=== PATIENT | female | born 1960 | race Caucasian/White ===

== ENCOUNTER → 2016-05-31 | Outpatient (CLI) | payer BC ==
--- NOTE | 2016-06-01 08:18 | MM ---
Reason for exam: screening (asymptomatic). Last mammogram was performed 1 year ago. History: Patient is postmenopausal, has history of other cancer at age 53, and had first child at age 30. Family history of premenopausal breast cancer in maternal grandmother at age 48. Physical Findings: A clinical breast exam by your physician is recommended on an annual basis and results should be correlated with mammographic findings. MG 3D Screening Mammo W/Cad Bilateral CC and MLO view(s) were taken. Prior study comparison: May 29, 2015, bilateral MG 3d screening mammo w/cad. May 27, 2014, bilateral MG screening mammo w CAD. May 25, 2013, bilateral digital screening mammo w/CAD. There are scattered fibroglandular densities. No significant changes when compared with prior studies. ASSESSMENT: Negative, BI-RAD 1 RECOMMENDATION: Routine screening mammogram of both breasts in 1 year.
== END | disposition home or self-care (01) ==
LOC: RADMAMWWP 15:37
PROVIDERS: ATTEND Internal Medicine
DX: Z12.31 Encounter for screening mammogram for malignant neoplasm of breast (principal)
CPT/HCPCS: 77063; G0202

== ENCOUNTER 2016-09-09 00:45 | Emergency (ER) | payer BC ==
[2016-09-09] MEDS ORDERED: ONDANSETRON 4 MG/2 ML VIAL IVP STA (01:58)
[2016-09-09 02:25] LABS: Basophils % (A) 0 %; CH 28.5; CHCM 33.5; Eosinophils # (A) 0.1 k/uL (0-0.7); Eosinophils % (A) 1 %; HCT 38.8 % (34.0-46.0); HDW 2.35; HGB 13.5 gm/dL (11.4-16.0); Luc # (Auto) 0.06; Luc % (Auto) 1; Lymphocytes # (A) 0.7 k/uL (1.0-4.8); Lymphocytes % (A) 6 %; MCH 29.7 pg (25.0-35.0); MCHC 34.8 g/dL (31.0-37.0); MCV 85.4 fL (80.0-100.0); Mean Platelet Volume 6.9; Monocytes # (A) 0.2 k/uL (0-1.0); Monocytes % (A) 2 %; Neutrophils # (A) 10.4 k/uL (1.3-7.7); Neutrophils % (A) 91 %; RBC 4.54 m/uL (3.80-5.40); RDW 12.7 % (11.5-15.5); WBC 11.4 k/uL (3.8-10.6); WBC (Perox) 11.64
[2016-09-09 02:35] LABS: ALT 64 U/L (9-52); AST 34 U/L (14-36); Alkaline Phosphatase 79 U/L (38-126); Amylase 63 U/L (30-110); Anion Gap 10 mmol/L; Blood Urea Nitrogen 23 mg/dL (7-17); Calcium 9.3 mg/dL (8.4-10.2); Carbon Dioxide 24 mmol/L (22-30); Chloride 105 mmol/L (98-107); Glucose 121 mg/dL (74-99); Non-African American GFR(MDRD) >60 (>60 ml/min/1.73 sqM); Potassium 4.1 mmol/L (3.5-5.1); Sodium 139 mmol/L (137-145); Total Bilirubin 0.7 mg/dL (0.2-1.3); Total Protein 6.7 g/dL (6.3-8.2)
[2016-09-09 02:43] LABS: Appearance,Urine Clear (Clear); Bacteria,Urine Moderate /hpf; Bilirubin,Urine Negative (Negative); Glucose,Urine (UA) Negative (Negative); Ketones,Urine Negative (Negative); Leukocyte Esterase,Urine Trace (Negative); Nitrite,Urine Negative (Negative); Particle Count 9964; Protein,Urine Negative (Negative); RBC,Urine <1 /hpf (0-5); Specific Gravity,Urine 1.006 (1.001-1.035); Squamous Epithelial Cell,Urine <1 /hpf (0-4); UA Billing (MACRO vs. MICRO) MICRO; Urobilinogen,Urine <2.0 mg/dL (<2.0); WBC,Urine 2 /hpf (0-5)
--- NOTE | 2016-09-09 03:22 | ED ---
General Adult HPI - General Chief complaint: Extremity Problem,Nontraumatic Stated complaint: Cold/Shaky Time Seen by Provider: 09/09/16 01:08 Source: patient Mode of arrival: ambulatory Limitations: no limitations - History of Present Illness Initial comments: This patient is a 56-year-old woman who presents to the emergency department with the complaint that her hands and then shaking. She feels like she is not able to stop this. Shortly after patient was triaged she also stated that she developed some nausea and then she had 2 episodes of vomiting. Patient states that the shaking of the hands then resolved following that. Further history from the patient reveals that she was concerned she may have had some lettuce and her salad that she thinks was bad. Patient states that all of her abdominal symptoms have resolved. She is not having any pain she is no longer having nausea and she has not had any further vomiting. -: hour(s) Location: upper extremity Radiation: non-radiation Consistency: constant Improves with: none Worsens with: none Associated Symptoms: denies other symptoms - Related Data Home Medications Medication Instructions Recorded Confirmed Levothyroxine Sodium [Synthroid] 1 tab PO DAILY 10/13/15 09/09/16 Fenofibrate Nanocrystallized 145 mg PO DAILY 09/09/16 [Tricor] Previous Rx's Medication Instructions Recorded Ondansetron Odt [Zofran ODT] 4 mg PO Q8HR PRN #10 tab 09/09/16 Allergies Allergy/AdvReac Type Severity Reaction Status Date / Time acetaminophen Allergy Severe Itching Verified 09/09/16 00:50 [From Darvocet-N 100] propoxyphene napsylate Allergy Severe Itching Verified 09/09/16 00:50 [From Darvocet-N 100] Review of Systems ROS Statement: Those systems with pertinent positive or pertinent negative responses have been documented in the HPI. ROS Other: All systems not noted in ROS Statement are negative. Constitutional: Denies: fever, chills Respiratory: Denies: cough, dyspnea Cardiovascular: Denies: chest pain, palpitations, syncope Gastrointestinal: Reports: as per HPI, abdominal pain, nausea, vomiting. Denies : diarrhea, hematemesis, melena, hematochezia Genitourinary: Denies: dysuria Musculoskeletal: Denies: back pain Skin: Denies: rash Neurological: Denies: headache, weakness, numbness Past Medical History Past Medical History: Cancer, Thyroid Disorder Additional Past Medical History / Comment(s): BRADYCARDIA, PROLAPSED MITRAL VALVE, STATES THEY SUSPECT THYROID CANCER. History of Any Multi-Drug Resistant Organisms: None Reported Past Surgical History: Cholecystectomy, Hysterectomy, Orthopedic Surgery Additional Past Surgical History / Comment(s): LEFT GREAT TOE FUSION WITH PINS , X2 LEFT KNEE ARTHROSCOPY, THYROID BX. Past Anesthesia/Blood Transfusion Reactions: Previous Problems w/ Anesthesia, Motion Sickness Additional Past Anesthesia/Blood Transfusion Reaction / Comment(s): STATES HOSPITALIZED WITH CHOLECYSTECTOMY DUE TO DIFFICULTY COMING OUT OF ANESTHESIA, ALSO TOOK A LONG TIME TO WAKE UP AFTER KNEE ARTHROSCOPY, SEVERE ITCHING WITH SPINAL ANESTHESIA . DARVOCET ALLERGY. Past Psychological History: Anxiety Smoking Status: Never smoker Past Alcohol Use History: Occasional Past Drug Use History: None Reported - Past Family History Father Family Medical History: Cancer Additional Family Medical History / Comment(s): MELANOMA General Exam Limitations: no limitations General appearance: alert, in no apparent distress Head exam: Present: atraumatic, normocephalic Eye exam: Present: normal appearance. Absent: scleral icterus, conjunctival injection ENT exam: Present: normal oropharynx Neck exam: Present: normal inspection Respiratory exam: Present: normal lung sounds bilaterally. Absent: respiratory distress, wheezes, rales, rhonchi, stridor Cardiovascular Exam: Present: regular rate, normal rhythm, normal heart sounds. Absent: systolic murmur, diastolic murmur, rubs, gallop GI/Abdominal exam: Present: soft. Absent: distended, tenderness, guarding, rebound, mass Extremities exam: Present: normal inspection, normal capillary refill. Absent: pedal edema, calf tenderness Back exam: Present: normal inspection. Absent: CVA tenderness (R), CVA tenderness (L) Neurological exam: Present: alert Skin exam: Present: warm, dry, intact, normal color Course Vital Signs 09/09/16 09/09/16 09/09/16 00:48 02:23 03:36 Temperature 97.3 F L 100.2 F H Pulse Rate 83 73 70 Respiratory 18 18 16 Rate Blood Pressure 142/86 128/60 118/68 O2 Sat by Pulse 100 98 95 Oximetry Medical Decision Making - Medical Decision Making Patient is a 56-year-old woman who presented with a feeling that she was having shaking of her hands. This resolved after she had vomited here. The patient workup is negative other than mild leukocytosis. We discussed possible reasons for this. Given that she is feeling well now will have her follow with her physician, returning here should she develop new symptoms or should the symptoms recur. - Lab Data Result diagrams: 09/09/16 02:12 09/09/16 02:12 Lab Results 09/09/16 09/09/16 09/09/16 Range/Units 02:12 02:12 02:22 WBC 11.4 H (3.8-10.6) k/uL RBC 4.54 (3.80-5.40) m/uL Hgb 13.5 (11.4-16.0) gm/dL Hct 38.8 (34.0-46.0) % MCV 85.4 (80.0-100.0) fL MCH 29.7 (25.0-35.0) pg MCHC 34.8 (31.0-37.0) g/dL RDW 12.7 (11.5-15.5) % Plt Count 199 (150-450) k/uL Neutrophils % 91 % Lymphocytes % 6 % Monocytes % 2 % Eosinophils % 1 % Basophils % 0 % Neutrophils # 10.4 H (1.3-7.7) k/uL Lymphocytes # 0.7 L (1.0-4.8) k/uL Monocytes # 0.2 (0-1.0) k/uL Eosinophils # 0.1 (0-0.7) k/uL Basophils # 0.0 (0-0.2) k/uL Sodium 139 (137-145) mmol/L Potassium 4.1 (3.5-5.1) mmol/L Chloride 105 (98-107) mmol/L Carbon Dioxide 24 (22-30) mmol/L Anion Gap 10 mmol/L BUN 23 H (7-17) mg/dL Creatinine 0.90 (0.52-1.04) mg/dL Est GFR (MDRD) Af Amer >60 (>60 ml/min/1.73 sqM) Est GFR (MDRD) Non-Af >60 (>60 ml/min/1.73 sqM) Glucose 121 H (74-99) mg/dL Calcium 9.3 (8.4-10.2) mg/dL Total Bilirubin 0.7 (0.2-1.3) mg/dL AST 34 (14-36) U/L ALT 64 H (9-52) U/L Alkaline Phosphatase 79 (38-126) U/L Total Protein 6.7 (6.3-8.2) g/dL Albumin 4.1 (3.5-5.0) g/dL Amylase 63 (30-110) U/L Lipase 80 (23-300) U/L Urine Color Colorless Urine Appearance Clear (Clear) Urine pH 6.0 (5.0-8.0) Ur Specific [place] 1.006 (1.001-1.035) Urine Protein Negative (Negative) Urine Glucose (UA) Negative (Negative) Urine Ketones Negative (Negative) Urine Blood Negative (Negative) Urine Nitrite Negative (Negative) Urine Bilirubin Negative (Negative) Urine Urobilinogen <2.0 (<2.0) mg/dL Ur Leukocyte Esterase Trace H (Negative) Urine RBC <1 (0-5) /hpf Urine WBC 2 (0-5) /hpf Ur Squamous Epith Cells <1 (0-4) /hpf Urine Bacteria Moderate H (None) /hpf Disposition Clinical Impression: Gastroenteritis Disposition: HOME SELF-CARE Condition: Good Instructions: Viral Syndrome (ED) Prescriptions: Ondansetron Odt [Zofran ODT] 4 mg PO Q8HR PRN #10 tab PRN Reason: Nausea Referrals: Kyrie Sullivan MD [Primary Care Provider] - 1-2 days
[2016-09-09 03:37] VITALS: BP 118/68; PULSE 70; RESP 16; TEMP 100.2
== END 2016-09-09 03:39 | disposition home or self-care (01) ==
LOC: EC 00:45
DX: K52.9 Noninfective gastroenteritis and colitis, unspecified (principal); E07.9 Disorder of thyroid, unspecified; Z90.49 Acquired absence of other specified parts of digestive tract; Z85.820 Personal history of malignant melanoma of skin; Z88.5 Allergy status to narcotic agent; Z79.899 Other long term (current) drug therapy
CPT/HCPCS: 99284; 96374; 36415; 80053; 82150; 83690; 85025; 81001; J2405

== ENCOUNTER → 2017-02-01 | Outpatient (CLI) | payer OTHER ==
--- NOTE | 2017-02-01 16:58 | XR ---
EXAMINATION TYPE: XR knee complete RT DATE OF EXAM: 02/01/2017 COMPARISON: NONE HISTORY: Knee pain TECHNIQUE: 3 views FINDINGS: I see no fracture nor dislocation. Joint spaces are normal. There is no sign of any joint e ffusion. IMPRESSION: Negative right knee exam. Mild soft tissue swelling noted anterior to the patella on the lateral view.
== END | disposition home or self-care (01) ==
LOC: RADXRMAIN 16:41
PROVIDERS: ATTEND Emergency Medicine
DX: M79.89 Other specified soft tissue disorders (principal)

== ENCOUNTER → 2017-05-14 | Outpatient (CLI) | payer BC ==
[2017-05-14 07:58] LABS: Basophils % (A) 0 %; Eosinophils # (A) 0.1 k/uL (0-0.7); Eosinophils % (A) 1 %; HCT 42.2 % (34.0-46.0); HGB 13.7 gm/dL (11.4-16.0); Lymphocytes # (A) 1.1 k/uL (1.0-4.8); Lymphocytes % (A) 14 %; MCH 28.1 pg (25.0-35.0); MCHC 32.5 g/dL (31.0-37.0); MCV 86.7 fL (80.0-100.0); Mean Platelet Volume 7.2; Monocytes # (A) 0.5 k/uL (0-1.0); Monocytes % (A) 6 %; Neutrophils # (A) 6.4 k/uL (1.3-7.7); Neutrophils % (A) 77 %; Platelet Count 252 k/uL (150-450); RBC 4.87 m/uL (3.80-5.40); RDW 12.4 % (11.5-15.5); WBC 8.3 k/uL (3.8-10.6)
[2017-05-14 08:09] LABS: ALT 40 U/L (9-52); AST 28 U/L (14-36); Albumin 4.2 g/dL (3.5-5.0); Alkaline Phosphatase 66 U/L (38-126); Anion Gap 10 mmol/L; Blood Urea Nitrogen 15 mg/dL (7-17); Calcium 9.6 mg/dL (8.4-10.2); Carbon Dioxide 28 mmol/L (22-30); Chloride 106 mmol/L (98-107); Cholesterol 149 mg/dL (<200); Glucose 91 mg/dL (74-99); HDL Cholesterol 59 mg/dL (40-60); LDL Cholesterol,Calculated 73 mg/dL (0-99); Potassium 4.3 mmol/L (3.5-5.1); Sodium 144 mmol/L (137-145); Total Bilirubin 0.4 mg/dL (0.2-1.3); Total Protein 7.2 g/dL (6.3-8.2); Triglycerides 87 mg/dL (<150)
[2017-05-14 09:20] LABS: T4, Free (Free Thyroxine) 1.59 ng/dL (0.78-2.19)
== END | disposition home or self-care (01) ==
LOC: LABWHC1 07:36
PROVIDERS: ATTEND Internal Medicine
DX: E78.2 Mixed hyperlipidemia (principal); E55.9 Vitamin D deficiency, unspecified; E89.0 Postprocedural hypothyroidism
CPT/HCPCS: 36415; 80053; 80061; 82306; 84439; 84443; 85025

== ENCOUNTER → 2017-06-22 | Outpatient (CLI) | payer BC ==
--- NOTE | 2017-06-24 11:43 | MM ---
Reason for exam: screening (asymptomatic). Last mammogram was performed 1 year and 1 month ago. History: Patient is postmenopausal, has history of other cancer at age 53, and had first child at age 30. Family history of premenopausal breast cancer in maternal grandmother at age 48. Physical Findings: A clinical breast exam by your physician is recommended on an annual basis and results should be correlated with mammographic findings. MG 3D Screening Mammo W/Cad Bilateral CC and MLO view(s) were taken. Prior study comparison: May 31, 2016, bilateral MG 3d screening mammo w/cad. May 29, 2015, bilateral MG 3d screening mammo w/cad. The breast tissue is almost entirely fat. Benign oil cyst calcifications. No significant changes when compared with prior studies. ASSESSMENT: Negative, BI-RAD 1 RECOMMENDATION: Routine screening mammogram of both breasts in 1 year.
== END | disposition home or self-care (01) ==
LOC: RADMAMWWP 15:32
PROVIDERS: ATTEND Internal Medicine
DX: Z12.31 Encounter for screening mammogram for malignant neoplasm of breast (principal)
CPT/HCPCS: 77063; 77067

== ENCOUNTER → 2017-12-23 | Outpatient (CLI) | payer BC ==
--- NOTE | 2017-12-23 12:13 | US ---
EXAMINATION TYPE: US liver DATE OF EXAM: 12/23/2017 COMPARISON: NONE CLINICAL HISTORY: R94.5 ABN LIVER FUNCTIONS. EXAM MEASUREMENTS: Liver Length: 16.7 cm Gallbladder Wall: Surgically absent CBD: 0.7 cm Right Kidney: 11.5 x 4.5 x 4.5 cm Pancreas: Tail obscured by overlying bowel gas Liver: Heterogeneous, attenuating slightly large at 16.7 cm. Normal less than 15.5 cm. Gallbladder: Surgically absent Evidence for sonographic Noble's sign: No CBD: wnl Right Kidney: No hydronephrosis or masses seen IMPRESSION: 1. Mild fatty infiltration of the slightly enlarged liver.
== END ==
LOC: RADUSWWP 08:12
PROVIDERS: ATTEND Internal Medicine
DX: K76.0 Fatty (change of) liver, not elsewhere classified (principal)
CPT/HCPCS: 76705

== ENCOUNTER → 2018-06-29 | Outpatient (CLI) | payer BC ==
--- NOTE | 2018-06-29 08:55 | BD ---
EXAMINATION TYPE: Axial Bone Density DATE OF EXAM: 06/29/2018 COMPARISON: NONE CLINICAL HISTORY: Postmenopausal female. Height: 66 Weight: 173.5 FRAX RISK QUESTIONS: Alcohol (3 or more units per day): no Family History (Parent hip fracture): no Glucocorticoids (More than 3mos): no (Ex: prednisone, prednisolone, methylprednisolone, dexamethasone, and hydrocortisone). History of Fracture in Adulthood: no Secondary Osteoporosis: 1. Type 1 Diabetes: no 2. Hyperthyroidism: no 3. Menopause before 45: no 4. Malnutrition: no 5. Chronic liver disease: no Rheumatoid Arthritis: no Current Tobacco Use: no RISK FACTORS HISTORY OF: Family History of Osteoporosis: no Active: yes Diet low in dairy products/other sources of calcium: no Postmenopausal woman: around age 43 MEDICATIONS: fenofibrate, vit d Thyroid Medications: synthroid How Lon years Additional History: EXAM MEASUREMENTS: Bone mineral densitometry was performed using the [employer] System. Bone mineral density as measured about the Lumbar spine is: ----- L1-L4(G/cm2): 1.251 T Score Values are as follows: ----- L2: 0.7 ----- L3: 0.2 ----- L4: -0.2 ----- L1-L4: 0.7 Bone mineral density : baseline Bone mineral density about the R hip (g/cm2): 1.050 Bone mineral density about the L hip (g/cm2): 10.40 T Score values are as follows: -----R Neck: 0.1 -----L Neck: 0.0 -----R Total: 0.5 -----L Total: 0.6 Bone mineral density : baseline IMPRESSION: Normal (Values between +1 and -1 indicate normal bone mass). Consider repeating this study in 5 year s or sooner if there is some new clinical indication. NOTE: T-SCORE=SD OF THE YOUNG ADULT MEAN.
--- NOTE | 2018-06-30 11:44 | MM ---
Reason for exam: screening (asymptomatic). Last mammogram was performed 1 year ago. History: Patient is postmenopausal, has history of other cancer at age 53, and had first child at age 30. Family history of premenopausal breast cancer in maternal grandmother at age 48. Physical Findings: A clinical breast exam by your physician is recommended on an annual basis and results should be correlated with mammographic findings. MG 3D Screening Mammo W/Cad Bilateral CC and MLO view(s) were taken. Prior study comparison: June 22, 2017, bilateral MG 3d screening mammo w/cad. May 31, 2016, bilateral MG 3d screening mammo w/cad. The breast tissue is almost entirely fat. No significant changes when compared with prior studies. ASSESSMENT: Benign, BI-RAD 2 RECOMMENDATION: Routine screening mammogram of both breasts in 1 year.
== END | disposition home or self-care (01) ==
LOC: RADMAMWWP 07:16
PROVIDERS: ATTEND Internal Medicine
DX: Z12.31 Encounter for screening mammogram for malignant neoplasm of breast (principal); N95.1 Menopausal and female climacteric states
CPT/HCPCS: 77063; 77067; 77080

== ENCOUNTER → 2019-10-09 | Outpatient (CLI) | payer BC ==
--- NOTE | 2019-10-09 10:15 | CT ---
EXAMINATION TYPE: CT angio chest DATE OF EXAM: 10/09/2019 COMPARISON: None HISTORY: thoracic aneurysm CT DLP: 733 mGycm Automated exposure control for dose reduction was used. CONTRAST: CTA scan of the thorax is performed without and with IV Contrast, patient injected with 100 mL of Iso carlie 370, pulmonary embolism protocol. MIP images are created and reviewed. 3D reconstructed images are created on an independent workstation and reviewed. FINDINGS: LUNGS: The lungs are grossly clear, there is no concerning parenchymal mass or nodule identified. T here is no pleural effusion or pneumothorax seen. The tracheobronchial tree is patent. AORTA: Aortic root measures approximately 4 cm, proximal ascending aorta measures 3.6 cm, proximal d escending aorta 2.5 cm, aorta at the level of the hiatus measures approximately 2.7 cm. MEDIASTINUM: There is satisfactory enhancement of the pulmonary artery and its branches, there is no CT evidence for pulmonary embolism. There are no greater than 1 cm hilar or mediastinal lymph nodes. Enlarged pulmonary artery could be due to underlying pulmonary artery hypertension No pericardial e ffusion is seen. There is a small hiatal hernia. OTHER: Liver shows low attenuation likely due to hepatic steatosis. Patient is post cholecystectomy. The celiac axis, superior mesenteric artery, super aortic branch vessels are patent IMPRESSION: AORTIC ANEURYSM. HEPATIC STEATOSIS AND POSTOP CHANGES. SMALL HIATAL HERNIA.
== END | disposition home or self-care (01) ==
LOC: RADCTMAIN 08:57
PROVIDERS: ATTEND Internal Medicine Interventional Cardiology
DX: I71.2 Thoracic aortic aneurysm, without rupture (principal); Z98.890 Other specified postprocedural states; K44.9 Diaphragmatic hernia without obstruction or gangrene
CPT/HCPCS: 71275; Q9967

== ENCOUNTER → 2019-10-29 | Outpatient (CLI) | payer BC ==
--- NOTE | 2019-10-30 09:54 | MM ---
Reason for exam: screening (asymptomatic). Last mammogram was performed 1 year and 4 months ago. History: Patient is postmenopausal, has history of other cancer at age 53, and had first child at age 30. Family history of premenopausal breast cancer in maternal grandmother at age 48. Physical Findings: A clinical breast exam by your physician is recommended on an annual basis and results should be correlated with mammographic findings. MG 3D Screening Mammo W/Cad Bilateral CC and MLO view(s) were taken. Prior study comparison: June 29, 2018, bilateral MG 3d screening mammo w/cad. June 22, 2017, bilateral MG 3d screening mammo w/cad. There are scattered fibroglandular densities. There are benign appearing round calcifications bilaterally. There is no discrete abnormality. ASSESSMENT: Benign, BI-RAD 2 RECOMMENDATION: Routine screening mammogram of both breasts in 1 year.
== END | disposition home or self-care (01) ==
LOC: RADMAMWWP 09:33
PROVIDERS: ATTEND Internal Medicine
DX: Z12.31 Encounter for screening mammogram for malignant neoplasm of breast (principal); Z80.3 Family history of malignant neoplasm of breast
CPT/HCPCS: 77063; 77067

== ENCOUNTER → 2020-11-05 | Outpatient (CLI) | payer BC ==
--- NOTE | 2020-11-06 12:21 | MM ---
Reason for exam: screening (asymptomatic). Last mammogram was performed 1 year ago. History: Patient is postmenopausal, has history of other cancer at age 53, and had first child at age 30. Family history of premenopausal breast cancer in maternal grandmother at age 48. Physical Findings: A clinical breast exam by your physician is recommended on an annual basis and results should be correlated with mammographic findings. MG 3D Screening Mammo W/Cad Bilateral CC and MLO view(s) were taken. Prior study comparison: October 29, 2019, bilateral MG 3d screening mammo w/cad. June 29, 2018, bilateral MG 3d screening mammo w/cad. There are scattered fibroglandular densities. Stable benign calcifications. There is no discrete abnormality. No significant changes when compared with prior studies. ASSESSMENT: Benign, BI-RAD 2 RECOMMENDATION: Routine screening mammogram of both breasts in 1 year.
== END ==
LOC: RADMAMWWP 07:09
PROVIDERS: ATTEND Internal Medicine
DX: Z12.31 Encounter for screening mammogram for malignant neoplasm of breast (principal); Z80.3 Family history of malignant neoplasm of breast
CPT/HCPCS: 77063; 77067

== ENCOUNTER → 2021-11-09 | Outpatient (CLI) | payer BC ==
--- NOTE | 2021-11-09 10:15 | MM ---
Reason for Exam: Screening (asymptomatic). Last screening mammogram was performed 12 month(s) ago. Patient History: Menarche at age 11. First Full-Term at age 30. Late child-bearing (after 30). Right ovary removed at age 44. Hysterectomy at age 44. Postmenopausal. Patient has history of breast feeding. Other cancer, age 53. Maternal grandmother had breast cancer, age 48. Risk Values: Karla 5 year model risk: 2.2%. NCI Lifetime model risk: 9.1%. Prior Study Comparison: 05/31/2016 Bilateral Screening Mammogram, [facility]. 06/22/2017 Bilateral Screening Mammogram, [facility]. 06/29/2018 Bilateral Screening Mammogram, [facility]. 10/29/2019 Bilateral Screening Mammogram, [facility]. 11/05/2020 Bilateral Screening Mammogram, [facility]. Tissue Density: The breast tissue is almost entirely fat. Findings: Analyzed By CAD. Benign-appearing calcifications. There is no suspicious group of microcalcifications or new suspicious mass in either breast. Overall Assessment: Benign, BI-RAD 2 Management: Screening Mammogram of both breasts in 1 year. A clinical breast exam by your physician is recommended on an annual basis and results should be correlated with mammographic findings. Electronically signed and approved by: Amadeo Tamez DO
== END | disposition home or self-care (01) ==
LOC: RADMAMWWP 08:10
PROVIDERS: ATTEND Internal Medicine
DX: Z12.31 Encounter for screening mammogram for malignant neoplasm of breast (principal); Z78.0 Asymptomatic menopausal state; Z85.89 Personal history of malignant neoplasm of other organs and systems; Z80.3 Family history of malignant neoplasm of breast
CPT/HCPCS: 77063; 77067

== ENCOUNTER 2022-01-01 11:21 | Emergency (ER) | payer OTHER, BC ==
[2022-01-01 11:47] VITALS: TEMP 97.9
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
[2022-01-01 13:40] VITALS: BP 123/69; PULSE 47; RESP 17
== END 2022-01-01 13:39 | disposition home or self-care (01) ==
LOC: EC 11:21
DX: R51.9 Headache, unspecified (principal); E07.9 Disorder of thyroid, unspecified; F41.9 Anxiety disorder, unspecified; Z88.6 Allergy status to analgesic agent; Z88.5 Allergy status to narcotic agent; Z79.890 Hormone replacement therapy; V49.40XA Driver injured in collision with unspecified motor vehicles in traffic accident, initial encounter
CPT/HCPCS: 70450; 72125; 99284

== ENCOUNTER → 2022-10-20 | Outpatient (CLI) | payer BC ==
--- NOTE | 2022-10-21 08:07 | CT ---
EXAMINATION TYPE: CT angio chest DATE OF EXAM: 10/20/2022 COMPARISON: 10/01/2019 HISTORY: Thoracic aortic aneurysm, without rupture CT DLP: 718.00 mGycm CONTRAST: CTA thoracic aorta with 3-D reconstruction is performed and without and with IV Contrast, patient inj ected with 100 ml mL of Isovue 300. Contrast CTA of the thoracic aorta was performed from the lung apex through the upper abdomen. 3D re construction imaging obtained at a separate workstation. CT Chest: THORACIC AORTA: Aortic root measures 4 cm maximal dimension versus 4 cm previously. Ascending thoraci c aorta measures 3.5 cm AP dimension while the descending thoracic aorta measures 2.7 cm. Mild athero matous changes seen. There is no evidence for dissection or periaortic collection. LUNGS: The lungs are clear and free of infiltrate or atelectasis. No pulmonary nodule or mass is det ected. No pleural effusion or CT evidence of interstitial lung disease. MEDIASTINUM: Small hiatal hernia. No evidence for mediastinal hematoma. The heart is not enlarged. No evidence for mediastinal mass or adenopathy. HILAR STRUCTURES: No evidence for mass. No hilar adenopathy is appreciated. OTHER: No significant abnormality. IMPRESSION- 1. Borderline aneurysmal dilatation of the aortic root. Otherwise unremarkable study. Small hiatal he rnia.
== END | disposition home or self-care (01) ==
LOC: RADCTMAIN 13:24
PROVIDERS: ATTEND Internal Medicine Interventional Cardiology
DX: I71.20 Thoracic aortic aneurysm, without rupture, unspecified (principal); K44.9 Diaphragmatic hernia without obstruction or gangrene
CPT/HCPCS: 71275; Q9967

== ENCOUNTER → 2022-11-10 | Outpatient (CLI) | payer BC ==
--- NOTE | 2022-11-11 08:15 | MM ---
Reason for Exam: Screening (asymptomatic). Last screening mammogram was performed 12 month(s) ago. Patient History: Menarche at age 11. First Full-Term at age 30. Late child-bearing (after 30). Right ovary removed at age 44. Hysterectomy at age 44. Postmenopausal. Patient has history of breast feeding. Other cancer, age 53. Maternal grandmother had breast cancer, age 48. Risk Values: Karla 5 year model risk: 2.2%. NCI Lifetime model risk: 8.9%. Prior Study Comparison: 10/29/2019 Bilateral Screening Mammogram, [facility]. 11/05/2020 Bilateral Screening Mammogram, [facility]. 11/09/2021 Bilateral MG 3D screening mammo w/cad, [facility]. Tissue Density: There are scattered fibroglandular densities. Findings: Analyzed By CAD. There is no suspicious group of microcalcifications or new suspicious mass in either breast. Overall Assessment: Negative, BI-RAD 1 Management: Screening Mammogram of both breasts in [address] [facility] will attempt to contact patient to return for supplemental views and ultrasound if indicated. Patient should continue monthly self-breast exams. A clinical breast exam by your physician is recommended on an annual basis. This exam should not preclude additional follow-up of suspicious palpable abnormalities. Note on Karla scores and lifetime risk: 1. A Karla score greater than 3% is considered moderate risk. If this is the case, consider specialist referral to assess eligibility for a risk reducing agent. 2. If overall lifetime risk for the development of breast cancer is 20% or higher, the patient may qualify for future screening with alternating mammogram and breast MRI. Electronically signed and approved by: Amadeo Tamez DO
== END | disposition home or self-care (01) ==
LOC: RADMAMWWP 11:44
PROVIDERS: ATTEND Internal Medicine
DX: Z12.31 Encounter for screening mammogram for malignant neoplasm of breast (principal); Z78.0 Asymptomatic menopausal state; Z80.3 Family history of malignant neoplasm of breast
CPT/HCPCS: 77063; 77067

== ENCOUNTER 2023-08-27 15:03 | Emergency (ER) | payer MEDICARE, BC ==
--- NOTE | 2023-08-27 15:57 | ED ---
Animal Bite HPI - General Chief Complaint: Animal Bite Stated Complaint: Animal Bite/Cat Time Seen by Provider: 08/27/23 15:55 Source: patient, RN notes reviewed Mode of arrival: ambulatory Limitations: no limitations - History of Present Illness Initial Comments: 63-year-old female presenting with chief complaint of cat scratch on bilateral lower legs this morning. States she was outside walking her dog when she was attacked by a cat. She is unsure if the cat was a stray. She reports the cat jumped out of the bushes and scratched the back of her right lower leg and punctured her left lower leg. Last tetanus was over 5 years ago. - Related Data Home Medications Medication Instructions Recorded Confirmed Levothyroxine Sodium [Synthroid] 1 tab PO DAILY 10/13/15 09/09/16 Fenofibrate Nanocrystallized 145 mg PO DAILY 09/09/16 [Tricor] Previous Rx's Medication Instructions Recorded Ondansetron Odt [Zofran ODT] 4 mg PO Q8HR PRN #10 tab 09/09/16 Amoxic-Pot Clav 875-125Mg 1 tab PO Q12HR 10 Days #20 tab 08/27/23 [Augmentin 875-125] Allergies Allergy/AdvReac Type Severity Reaction Status Date / Time acetaminophen Allergy Severe Itching Verified 08/27/23 15:13 [From Darvocet-N 100] propoxyphene napsylate Allergy Severe Itching Verified 08/27/23 15:13 [From Darvocet-N 100] Review of Systems ROS Statement: Those systems with pertinent positive or pertinent negative responses have been documented in the HPI. ROS Other: All systems not noted in ROS Statement are negative. Past Medical History Past Medical History: Cancer, Thyroid Disorder Additional Past Medical History / Comment(s): BRADYCARDIA, PROLAPSED MITRAL VALVE, STATES THEY SUSPECT THYROID CANCER. History of Any Multi-Drug Resistant Organisms: None Reported Past Surgical History: Cholecystectomy, Hysterectomy, Orthopedic Surgery Additional Past Surgical History / Comment(s): LEFT GREAT TOE FUSION WITH PINS , X2 LEFT KNEE ARTHROSCOPY, THYROID BX. Past Anesthesia/Blood Transfusion Reactions: Previous Problems w/ Anesthesia, Motion Sickness Additional Past Anesthesia/Blood Transfusion Reaction / Comment(s): STATES HOSPITALIZED WITH CHOLECYSTECTOMY DUE TO DIFFICULTY COMING OUT OF ANESTHESIA, ALSO TOOK A LONG TIME TO WAKE UP AFTER KNEE ARTHROSCOPY, SEVERE ITCHING WITH SPINAL ANESTHESIA . DARVOCET ALLERGY. Past Psychological History: Anxiety Smoking Status: Never smoker Past Alcohol Use History: Occasional Past Drug Use History: None Reported - Past Family History Father Family Medical History: Cancer Additional Family Medical History / Comment(s): MELANOMA General Exam - General Exam Comments Initial Comments: Visual Physical Exam Vital signs reviewed General: Well-appearing, nontoxic, no acute distress. Head: Normocephalic, atraumatic Eyes: PERRLA, EOMI ENT: Airway patent Chest: Nonlabored breathing Skin: No visual rash, normal skin tone Neuro: Alert and oriented 3 Musculoskeletal: No gross abnormalities Limitations: no limitations General appearance: alert, in no apparent distress Head exam: Present: atraumatic, normocephalic, normal inspection Respiratory exam: Present: normal lung sounds bilaterally. Absent: respiratory distress, wheezes, rales, rhonchi, stridor Cardiovascular Exam: Present: regular rate, normal rhythm, normal heart sounds. Absent: systolic murmur, diastolic murmur, rubs, gallop, clicks Right Knee exam: Present: normal inspection, full ROM. Absent: tenderness, swelling Lower Leg exam: Present: full ROM, abrasion (2 cm linear abrasion present on posterior aspect of right lower leg with no active bleeding or surrounding erythema.). Absent: normal inspection, tenderness, swelling, laceration Ankle exam: Present: normal inspection, full ROM. Absent: tenderness, swelling Neurovascular tendon exam: Present: no vascular compromise Left Knee exam: Present: normal inspection, full ROM. Absent: tenderness, swelling Lower Leg exam: Present: full ROM, abrasion (Pinpoint superficial abrasion present on posterior aspect of left lower leg. No active bleeding, surrounding erythema, or tenderness.). Absent: normal inspection, tenderness, swelling Neurovascular tendon exam: Present: no vascular compromise Course Vital Signs 08/27/23 15:11 Temperature 97.6 F Pulse Rate 69 Respiratory 20 Rate Blood Pressure 164/92 O2 Sat by Pulse 99 Oximetry Procedures - Laceration Laceration #1 Consent Obtained: verbal consent Indication: other (Abrasion) Site: lower extremity Size (cm): 2 Description: linear Pre-repair: irrigated extensively Additional Comments: Abrasion is superficial, sutures not indicated at this time. Medical Decision Making - Medical Decision Making I completed the quick note portion of this chart signed Yana De Dios PA-C Was pt. sent in by a medical professional or institution (LISSETTE Chavez, OILING MACHINE OPERATOR, urgent care, hospital, or longterm...) When possible be specific @ -No Did you speak to anyone other than the patient for history (EMS, parent, family, police, friend...)? What history was obtained from this source @ -No Did you review nursing and triage notes (agree or disagree)? Why? @ -I reviewed and agree with nursing and triage notes Were old charts reviewed (outside hosp., previous admission, EMS record, old EKG, old radiological studies, urgent care reports/EKG's, longterm records)? Report findings @ -No old charts were reviewed Differential Diagnosis (chest pain, altered mental status, abdominal pain women, abdominal pain men, vaginal bleeding, weakness, fever, dyspnea, syncope, headache, dizziness, GI bleed, back pain, seizure, CVA, palpatations, mental health, musculoskeletal)? @ -Cat bite, cat scratch, abrasion, laceration, avulsion EKG interpreted by me (3pts min.). @ -None X-rays interpreted by me (1pt min.). @ -None done CT interpreted by me (1pt min.). @ -None done U/S interpreted by me (1pt. min.). @ -None done What testing was considered but not performed or refused? (CT, X-rays, U/S, labs)? Why? @ -None What meds were considered but not given or refused? Why? @ -None Did you discuss the management of the patient with other professionals (professionals i.e. LISSETTE Chavez, OILING MACHINE OPERATOR, lab, RT, psych nurse, social welfare clerk, votator machine operator, teacher, chief digital officer, egg caser)? Give summary @ -No Was smoking cessation discussed for >3mins.? @ -No Was critical care preformed (if so, how long)? @ -No Were there social determinants of health that impacted care today? How? (Homelessness, low income, unemployed, alcoholism, drug addiction, transportation, low edu. Level, literacy, decrease access to med. care, halfway, rehab)? @ -No Was there de-escalation of care discussed even if they declined (Discuss DNR or withdrawal of care, Hospice)? DNR status @ -No What co-morbidities impacted this encounter? (DM, HTN, Smoking, COPD, CAD, Cancer, CVA, ARF, Chemo, Hep., AIDS, mental health diagnosis, sleep apnea, morbid obesity)? @ -None Was patient admitted / discharged? Hospital course, mention meds given and route, prescriptions, significant lab abnormalities, going to OR and other pertinent info. @ -Patient was discharged. Patient was seen and evaluated for cat scratch on bilateral lower legs prior to arrival. There is a 2 cm superficial, nonbleeding abrasion present on posterior aspect of right lower leg and a pinpoint abrasion present on posterior aspect of the left lower leg. Patient is neurovascularly intact. Abrasions were extensively irrigated. Tetanus was updated. Rabies prophylaxis not indicated at this time as there was no bites. Wound care discussed. Prescribed Augmentin 2 times daily for 10 days. Strict return/alarm symptoms discussed with patient in detail and she shows understanding and agrees with plan. Case discussed with my attending Dr. Pfeiffer. Patient discharged in stable condition. Undiagnosed new problem with uncertain prognosis? @ -No Drug Therapy requiring intensive monitoring for toxicity (Heparin, Nitro, Insulin, Cardizem)? @ -No Were any procedures done? @ -No Diagnosis/symptom? @ -Cat scratch right lower leg Acute, or Chronic, or Acute on Chronic? @ -Acute Uncomplicated (without systemic symptoms) or Complicated (systemic symptoms)? @ -Uncomplicated Side effects of treatment? @ -No Exacerbation, Progression, or Severe Exacerbation? @ -No Poses a threat to life or bodily function? How? (Chest pain, [place], [place], pneumonia, PE, COPD, DKA, ARF, appy, cholecystitis, CVA, Diverticulitis, Homicidal, Suicidal, threat to staff... and all critical care pts) @ -Low likelihood Disposition Clinical Impression: Cat scratch of right lower leg Disposition: HOME SELF-CARE Additional Instructions: Please take full course of Augmentin. Wash wound with warm water and antibacterial soap 3 times daily. Please return to the Emergency Department if symptoms worsen or any other concerns. Prescriptions: Amoxic-Pot Clav 875-125Mg [Augmentin 875-125] 1 tab PO Q12HR 10 Days #20 tab Is patient prescribed a controlled substance at d/c from ED?: No Referrals: Kyrie Sullivan MD [Primary Care Provider] - 1-2 days Time of Disposition: 16:51
[2023-08-27] MEDS: DIPH,PERTUS(ACELL)TETVAC-LF 0.5 ML VIAL IM ONE (17:02)
[2023-08-27 17:12] VITALS: BP 158/86; PULSE 70; RESP 19; TEMP 98
== END 2023-08-27 17:10 | disposition home or self-care (01) ==
LOC: EC 15:03
DX: S81.812A Laceration without foreign body, left lower leg, initial encounter (principal); S81.811A Laceration without foreign body, right lower leg, initial encounter; Z23 Encounter for immunization; Z88.8 Allergy status to other drugs, medicaments and biological substances; W55.01XA Bitten by cat, initial encounter; Y93.K1 Activity, walking an animal
CPT/HCPCS: 12001; 90471; 90715; 99282

== ENCOUNTER → 2023-11-18 | Outpatient (CLI) | payer MEDICARE ==
--- NOTE | 2023-11-20 11:48 | MM ---
Reason for Exam: Screening (asymptomatic). Last mammogram was performed 1 year(s) and 1 month(s) ago. Patient History: Menarche at age 11. First Full-Term at age 30. Late child-bearing (after 30). Right ovary removed at age 44. Hysterectomy at age 44. Postmenopausal. Patient has history of breast feeding. Other cancer, age 53. Maternal grandmother had breast cancer, age 48. Risk Values: Karla 5 year model risk: 2.3%. NCI Lifetime model risk: 8.6%. Prior Study Comparison: 11/05/2020 Bilateral Screening Mammogram, [facility]. 11/09/2021 Bilateral MG 3D screening mammo w/cad, [facility]. 11/10/2022 Bilateral MG 3D screening mammo w/cad, [facility]. Tissue Density: The breasts are almost entirely fatty. Findings: Analyzed By CAD. Right breast: There is no suspicious group of microcalcifications or new suspicious mass. Left breast: There is no suspicious group of microcalcifications or new suspicious mass. Overall Assessment: Negative, BI-RAD 1 Management: Screening Mammogram of both breasts in [address] [facility] will attempt to contact patient to return for supplemental views and ultrasound if indicated. Patient should continue monthly self-breast exams. A clinical breast exam by your physician is recommended on an annual basis. This exam should not preclude additional follow-up of suspicious palpable abnormalities. Note on Karla scores and lifetime risk: 1. A Karla score greater than 3% is considered moderate risk. If this is the case, consider specialist referral to assess eligibility for a risk reducing agent. 2. If overall lifetime risk for the development of breast cancer is 20% or higher, the patient may qualify for future screening with alternating mammogram and breast MRI. Electronically signed and approved by: Amadeo Tamez DO
== END | disposition home or self-care (01) ==
LOC: RADMAMWWP 07:01
PROVIDERS: ATTEND Internal Medicine
DX: Z12.31 Encounter for screening mammogram for malignant neoplasm of breast
CPT/HCPCS: 77063; 77067

== ENCOUNTER → 2024-10-09 | Outpatient (CLI) | payer MEDICARE ==
[2024-10-09 15:06] LABS: HCT 40.0 % (37.2-46.3); HGB 13.0 g/dL (12.0-15.0); MCH 28.3 pg (27.0-32.0); MCHC 32.5 g/dL (32.0-37.0); MCV 87.1 FL (80.0-97.0); NRBC Per 100 WBC 0 X 10*3/uL (0.00-0.01); Platelet Count 263 X 10*3/uL (140-440); RBC 4.59 X 10*6/uL (4.10-5.20); RDW 13.2 % (11.5-14.5); WBC 5.76 X 10*3/uL (4.50-10.00)
[2024-10-09 15:26] LABS: ALT 30 U/L (8-44); AST 25 U/L (13-35); Albumin 4.2 g/dL (3.8-4.9); Albumin/Globulin Ratio 1.83 Ratio (1.60-3.17); Alkaline Phosphatase 62 U/L (41-126); Anion Gap 10.90 mmol/L (4.00-12.00); BUN/Creat Ratio 19.62 Ratio (12.00-20.00); Blood Urea Nitrogen 15.7 mg/dL (9.0-27.0); Calcium 9.5 mg/dL (8.7-10.3); Carbon Dioxide 24.1 mmol/L (21.6-31.8); Chloride 103 mmol/L (96-109); Globulin 2.3 g/dL (1.6-3.3); Glucose 89 mg/dL (70-110); Potassium 4.1 mmol/L (3.5-5.5); Sodium 138 mmol/L (135-145); Total Protein 6.5 g/dL (6.2-8.2)
== END | disposition home or self-care (01) ==
LOC: LABWHC1 09:49
PROVIDERS: ATTEND Internal Medicine Interventional Cardiology
DX: I48.0 Paroxysmal atrial fibrillation (principal)
CPT/HCPCS: 36415; 80053; 84443; 85027